=== PATIENT | male | born 1935 | race African-American/Black ===

== ENCOUNTER 2024-01-29 12:24 | Inpatient (IN) | payer MEDICARE, OTHER ==
[~2024-01-29] VITALS: Ht 172.7 cm; Wt 81.6 kg
[2024-01-29 13:00] LABS: BASOPHILS % (AUTO) 0.6 % (0.0-2.0); EOSINOPHILS # (AUTO) 0.6 K/uL (0.0-0.7); EOSINOPHILS % (AUTO) 7.3 % (0.0-6.0); HEMATOCRIT 32 % (39-51); HEMOGLOBIN 10.5 g/dL (13.5-17.5); LYMPHOCYTES % (AUTO) 13.6 % (20.0-44.0); MEAN CORPUSCULAR HEMOGLOBIN 27 PG (26.0-33.0); MEAN CORPUSCULAR HGB CONC 33 g/dl (31.0-36.0); MEAN CORPUSCULAR VOLUME 84 fL (80-96); MONOCYTES # (AUTO) 0.5 K/uL (0.1-1.30); MONOCYTES % (AUTO) 6.7 % (2.0-12.0); NEUTROPHILS # (AUTO) 5.5 K/uL (1.8-8.9); NEUTROPHILS % (AUTO) 71.8 % (43.0-81.0); PLATELET COUNT (AUTO) 211 K/uL (150-450); RED BLOOD CELL COUNT(AUTO) 3.86 MIL/uL (4.5-6.0); WHITE BLOOD COUNT (AUTO) 7.7 K/uL (4.3-11.0)
[2024-01-29 13:28] LABS: APPEARANCE,URINE CLEAR (CLEAR); BILIRUBIN,URINE NEGATIVE (NEGATIVE); BLOOD, URINE NEGATIVE Ery/uL (NEGATIVE); COLOR,URINE YELLOW (YELLOW); KETONES,URINE NEGATIVE (NEGATIVE); LEUKOCYTE ESTERASE ,URINE NEGATIVE (NEGATIVE); NITRITE, URINE NEGATIVE (NEGATIVE); PROTEIN,URINE 2+ mg/dl (NEGATIVE); UGLUCOSE NEGATIVE (NEGATIVE); UROBILINOGEN,URINE 0.2 EU/dL (0.2)
[2024-01-29 13:31] LABS: ADD URINE CULTURE NO; BACTERIA,URINE Few /HPF (None Seen); HYALINE CASTS, URINE Few /LPF (None Seen); RBC,URINE 0-2 /HPF (0-2); SQUAMOUS EPITHELIAL CELL,UR 0-2 /HPF (None Seen)
[2024-01-29 13:32] LABS: INR 1.06 (0.91-1.10); PARTIAL THROMBOPLASTIN TIME 26.5 SEC (24.3-34.3); PROTHROMBIN TIME 11.2 SECS (9.2-11.1)
[2024-01-29 13:34] LABS: LACTIC ACID 1.4 mmol/L (0.4-2.0)
[2024-01-29 13:38] LABS: CALCIUM, SERUM 8.5 mg/dL (8.5-10.1); CARBON DIOXIDE 30 mmol/L (21-32); CHLORIDE 107 mmol/L (98-107); CREATININE 2.4 mg/dL (0.6-1.3); GLUCOSE 110 mg/dL (74-106); POTASSIUM 3.7 mmol/L (3.5-5.1); SODIUM SERUM 141 mmol/L (136-145); UREA NITROGEN, BLOOD 37 mg/dL (7-18)
[2024-01-29 13:43] LABS: ALANINE AMINOTRANSFERASE 26 U/L (12-78); ALBUMIN 2.8 g/dL (3.4-5.0); ALKALINE PHOSPHATASE 49 U/L (46-116); ASPARTATE AMINOTRANSFERASE 22 U/L (15-37); BILIRUBIN,DIRECT 0.1 mg/dL (0.0-0.2); BILIRUBIN,TOTAL 0.2 mg/dL (0.2-1.0); TOTAL PROTEIN, SERUM 5.7 g/dL (6.4-8.2)
[2024-01-29 15:30] VITALS: BP 143/69; TEMP 98.2
[2024-01-29 16:00] VITALS: BP 143/69; TEMP 98.2; O2SAT 96
[2024-01-29] MEDS ORDERED: ONDANSETRON HCL/PF 4 MG/2 ML VIAL IVP PRN (16:30)
[2024-01-29] MEDS ORDERED: ACETAMINOPHEN 325 MG TABLET PO PRN (16:30)
[2024-01-29] MEDS: ENOXAPARIN SODIUM 30 MG/0.3 ML DISP.SYRIN SQ SCH (17:06)
[2024-01-29] MEDS: IV 1/2NS 1000 ML 1,000 ML IV PRN (17:16)
[2024-01-29 20:00] VITALS: BP 151/84; TEMP 98.6; O2SAT 97
[2024-01-29 20:58] VITALS: BP_SYST 109; BP_SYST 136; BP_SYST 137; BP_DIAS 100; BP_DIAS 66; BP_DIAS 75; TEMP 98.6; O2SAT 95
[2024-01-30] VITALS (7 sets, daily range): BP systolic 130–157; BP diastolic 63–87; TEMP 97.7–98.4; O2SAT 97–99
[2024-01-30 06:54] LABS: BASOPHILS % (AUTO) 0.6 % (0.0-2.0); EOSINOPHILS # (AUTO) 0.6 K/uL (0.0-0.7); EOSINOPHILS % (AUTO) 8.7 % (0.0-6.0); HEMATOCRIT 32 % (39-51); HEMOGLOBIN 10.6 g/dL (13.5-17.5); LYMPHOCYTES # (AUTO) 1.8 K/uL (0.8-4.8); LYMPHOCYTES % (AUTO) 24.6 % (20.0-44.0); MEAN CORPUSCULAR HEMOGLOBIN 27 PG (26.0-33.0); MEAN CORPUSCULAR HGB CONC 33 g/dl (31.0-36.0); MEAN CORPUSCULAR VOLUME 81 fL (80-96); MONOCYTES # (AUTO) 0.5 K/uL (0.1-1.30); MONOCYTES % (AUTO) 7.2 % (2.0-12.0); NEUTROPHILS # (AUTO) 4.3 K/uL (1.8-8.9); NEUTROPHILS % (AUTO) 58.9 % (43.0-81.0); PLATELET COUNT (AUTO) 225 K/uL (150-450); RED BLOOD CELL COUNT(AUTO) 3.92 MIL/uL (4.5-6.0); RED CELL DISTRIBUTION WIDTH 16.1 % (11.5-15.0); WHITE BLOOD COUNT (AUTO) 7.3 K/uL (4.3-11.0)
[2024-01-30 07:04] LABS: CALCIUM, SERUM 8.3 mg/dL (8.5-10.1); CREATININE 1.9 mg/dL (0.6-1.3); MAGNESIUM 1.6 mg/dL (1.8-2.4); PHOSPHORUS 3.7 mg/dL (2.5-4.9); POTASSIUM 3.9 mmol/L (3.5-5.1)
[2024-01-30] MEDS ORDERED: ACET325T53 PO (09:57)
[2024-01-30] MEDS ORDERED: [UNRECOGNIZED DRUG - CODE] PO (09:57)
[2024-01-30] MEDS ORDERED: OMEP40CA21 PO (09:57)
[2024-01-30] MEDS ORDERED: GUAI-966 PO (09:57)
[2024-01-30] MEDS ORDERED: METO50TA16 PO (09:57)
[2024-01-30] MEDS ORDERED: FURO40TA5 PO (09:57)
[2024-01-30] MEDS ORDERED: MAGN400O6 PO (09:57)
[2024-01-30] MEDS ORDERED: ROSU10TA29 PO (09:57)
[2024-01-30] MEDS ORDERED: DOCU100C36 PO (09:57)
[2024-01-30] MEDS ORDERED: NA P133E RC (09:57)
[2024-01-30] MEDS ORDERED: SITA25TA PO (09:57)
[2024-01-30] MEDS ORDERED: AMLO-212 PO (09:57)
[2024-01-30] MEDS ORDERED: MAGN400T52 PO (09:57)
[2024-01-30] MEDS ORDERED: FLUO60SO3 TP (09:57)
[2024-01-30] MEDS ORDERED: MEMA5TAB42 PO (09:57)
[2024-01-30] MEDS ORDERED: CHOL200059 PO (09:57)
[2024-01-30] MEDS ORDERED: DOXA4TAB3 PO (09:57)
[2024-01-30] MEDS ORDERED: FOLI0.8T23 PO (09:57)
[2024-01-30] MEDS ORDERED: ASPI-1420 PO (09:57)
[2024-01-30] MEDS ORDERED: TIZA-180 PO (09:57)
[2024-01-30] MEDS: MAGNESIUM OXIDE 400 MG TABLET PO ONE (11:16)
[2024-01-31] VITALS: BP 156/71; TEMP 99.1; O2SAT 93
[2024-01-31 04:00] VITALS: BP 143/73; TEMP 98.1; O2SAT 98
[2024-01-31 05:00] VITALS: BP_SYST 136; BP_SYST 143; BP_DIAS 72; BP_DIAS 81; TEMP 98.1; O2SAT 97
[2024-01-31 06:44] LABS: BASOPHILS % (AUTO) 0.6 % (0.0-2.0); EOSINOPHILS # (AUTO) 0.6 K/uL (0.0-0.7); EOSINOPHILS % (AUTO) 8.3 % (0.0-6.0); HEMATOCRIT 33 % (39-51); HEMOGLOBIN 10.8 g/dL (13.5-17.5); LYMPHOCYTES # (AUTO) 1.9 K/uL (0.8-4.8); LYMPHOCYTES % (AUTO) 25.1 % (20.0-44.0); MEAN CORPUSCULAR HEMOGLOBIN 27 PG (26.0-33.0); MEAN CORPUSCULAR HGB CONC 33 g/dl (31.0-36.0); MEAN CORPUSCULAR VOLUME 82 fL (80-96); MONOCYTES # (AUTO) 0.6 K/uL (0.1-1.30); MONOCYTES % (AUTO) 8.2 % (2.0-12.0); NEUTROPHILS # (AUTO) 4.5 K/uL (1.8-8.9); NEUTROPHILS % (AUTO) 57.8 % (43.0-81.0); PLATELET COUNT (AUTO) 226 K/uL (150-450); RED BLOOD CELL COUNT(AUTO) 3.99 MIL/uL (4.5-6.0); RED CELL DISTRIBUTION WIDTH 16.1 % (11.5-15.0); WHITE BLOOD COUNT (AUTO) 7.7 K/uL (4.3-11.0)
[2024-01-31 07:00] VITALS: BP 141/67; TEMP 98.1; O2SAT 96
[2024-01-31 07:18] LABS: ALBUMIN 2.5 g/dL (3.4-5.0); BILIRUBIN,TOTAL 0.3 mg/dL (0.2-1.0); CALCIUM, SERUM 8.3 mg/dL (8.5-10.1); CREATININE 1.8 mg/dL (0.6-1.3); MAGNESIUM 1.8 mg/dL (1.8-2.4); PHOSPHORUS 3.1 mg/dL (2.5-4.9); TOTAL PROTEIN, SERUM 5.6 g/dL (6.4-8.2)
[2024-02-01 08:11] LABS: PTH, INTACT 39 pg/mL (15-65)
== END 2024-01-31 18:04 | DRG 640 ==
LOC: ER 12:26 → TELE 14:02 → MED 01-31 10:40 → TELE 01-31 11:02 → MED 01-31 14:08
PROVIDERS: ADMIT Nurse Practitioner Acute Care; ATTEND Student in an Organized Health Care Education/Training Program
DX: E86.0 Dehydration (principal); N17.0 Acute kidney failure with tubular necrosis; E44.0 Moderate protein-calorie malnutrition; D68.69 Other thrombophilia; R00.1 Bradycardia, unspecified; R55 Syncope and collapse; E11.22 Type 2 diabetes mellitus with diabetic chronic kidney disease; E66.9 Obesity, unspecified; D64.9 Anemia, unspecified; E88.09 Other disorders of plasma-protein metabolism, not elsewhere classified; R53.1 Weakness; R42 Dizziness and giddiness; F03.90 Unspecified dementia, unspecified severity, without behavioral disturbance, psychotic disturbance, mood disturbance, and anxiety; I12.9 Hypertensive chronic kidney disease with stage 1 through stage 4 chronic kidney disease, or unspecified chronic kidney disease; N18.9 Chronic kidney disease, unspecified
CPT/HCPCS: 36415; 70450-TC; 71045-TC; 76770-TC; 80048-TC; 80053-TC; 80061-TC; 80076-TC; 81001; 82550-TC; 82962-TC; 83605-TC; 83735-TC; 83970; 84100-TC; 84155; 84165; 84443-TC; 84484-TC; 85025-TC; 85730-TC; 93307-TC; 97110-TC; 97116-TC; 97530-TC; A4223; G0378; J1650; J3490

== ENCOUNTER 2024-03-27 22:47 | Inpatient (IN) | payer MEDICARE, OTHER ==
[~2024-03-27] VITALS: Ht 188 cm; Wt 89.8 kg
[~2024-03-27 22:47] MED LIST: ACET325T53 PO; AMLO-212 PO; ASPI-1420 PO; CHOL200059 PO; DOCU100C36 PO; DOXA4TAB3 PO; FLUO60SO3 TP; FOLI0.8T23 PO; GUAI-966 PO; MAGN400O6 PO; MAGN400T52 PO; MEMA5TAB42 PO; NA P133E RC; OMEP40CA21 PO; ROSU10TA29 PO; SITA25TA PO; TIZA-180 PO; [UNRECOGNIZED DRUG - CODE] PO
[2024-03-27 23:29] LABS: BASOPHILS # (AUTO) 0.1 K/uL (0.0-0.2); BASOPHILS % (AUTO) 0.4 % (0.0-2.0); EOSINOPHILS # (AUTO) 0.2 K/uL (0.0-0.7); EOSINOPHILS % (AUTO) 1.4 % (0.0-6.0); HEMATOCRIT 30 % (39-51); HEMOGLOBIN 9.7 g/dL (13.5-17.5); LYMPHOCYTES # (AUTO) 1.1 K/uL (0.8-4.8); LYMPHOCYTES % (AUTO) 8.2 % (20.0-44.0); MEAN CORPUSCULAR HEMOGLOBIN 25 PG (26.0-33.0); MEAN CORPUSCULAR HGB CONC 33 g/dl (31.0-36.0); MEAN CORPUSCULAR VOLUME 77 fL (80-96); MONOCYTES # (AUTO) 0.7 K/uL (0.1-1.30); MONOCYTES % (AUTO) 5.2 % (2.0-12.0); NEUTROPHILS # (AUTO) 11.5 K/uL (1.8-8.9); NEUTROPHILS % (AUTO) 84.8 % (43.0-81.0); PLATELET COUNT (AUTO) 406 K/uL (150-450); RED BLOOD CELL COUNT(AUTO) 3.87 MIL/uL (4.5-6.0); WHITE BLOOD COUNT (AUTO) 13.6 K/uL (4.3-11.0)
[2024-03-27 23:40] LABS: CALCIUM, SERUM 8.4 mg/dL (8.5-10.1); CARBON DIOXIDE 26 mmol/L (21-32); CHLORIDE 106 mmol/L (98-107); CREATININE 2.2 mg/dL (0.6-1.3); GLUCOSE 109 mg/dL (74-106); SODIUM SERUM 140 mmol/L (136-145); UREA NITROGEN, BLOOD 46 mg/dL (7-18)
[2024-03-27 23:51] LABS: ALANINE AMINOTRANSFERASE 96 U/L (12-78); ALBUMIN 2.1 g/dL (3.4-5.0); ALKALINE PHOSPHATASE 82 U/L (46-116); ASPARTATE AMINOTRANSFERASE 66 U/L (15-37); BILIRUBIN,DIRECT 0.1 mg/dL (0.0-0.2); BILIRUBIN,TOTAL 0.2 mg/dL (0.2-1.0); NT-PRO BNP 1287 pg/mL (0-125)
[2024-03-27 23:57] LABS: INR 1.16 (0.91-1.10); PARTIAL THROMBOPLASTIN TIME 32.8 SEC (24.3-34.3); PROTHROMBIN TIME 12.2 SECS (9.2-11.1)
[2024-03-27] MEDS ORDERED: VANCOMYCIN 1 GM /D5W 250 ML PB IV ONE (23:59)
[2024-03-28] MEDS ORDERED: ACETAMINOPHEN 325 MG TABLET PO PRN
[2024-03-28] MEDS ORDERED: ONDANSETRON HCL/PF 4 MG/2 ML VIAL IVP PRN
[2024-03-28] MEDS ORDERED: MORPHINE SULFATE INJ 2 MG/ML DISP.SYRIN IV PRN
[2024-03-28] MEDS ORDERED: hydrALAZINE HCL IV 20 MG VIAL IV PRN
[2024-03-28] MEDS ORDERED: IV NS 0.9% 1,000 ML IV SCH
[2024-03-28] MEDS: VANCOMYCIN 1 GM in IV D5W 250 ML IV ONE (00:13)
[2024-03-28 00:37] LABS: IRON, SERUM 12 ug/dl (50-175); TOTAL IRON BINDING CAPACITY 177 ug/dl (250-450)
[2024-03-28 00:52] LABS: FERRITIN 131 ng/mL (8-388)
[2024-03-28] MEDS ORDERED: DEXTROSE 50%-WATER 50 ML DISP.SYRIN IV PRN (01:00)
[2024-03-28] MEDS: ASPIRIN 325 MG TABLET PO ONE (01:10)
[2024-03-28] MEDS ORDERED: TIZANIDINE HCL 4 MG TABLET PO PRN (02:30)
[2024-03-28] MEDS ORDERED: CLINDAMYCIN 900 MG/6 ML VIAL ONE (03:55)
[2024-03-28 04:00] VITALS: BP 143/89; TEMP 98.1; O2SAT 95
[2024-03-28] MEDS: CLINDAMYCIN 900 MG in IV D5W 50 ML IV SCH (04:03)
[2024-03-28 07:07] LABS: BASOPHILS % (AUTO) 0.4 % (0.0-2.0); EOSINOPHILS # (AUTO) 0.3 K/uL (0.0-0.7); EOSINOPHILS % (AUTO) 3.4 % (0.0-6.0); HEMATOCRIT 27 % (39-51); HEMOGLOBIN 8.9 g/dL (13.5-17.5); LYMPHOCYTES # (AUTO) 1.3 K/uL (0.8-4.8); LYMPHOCYTES % (AUTO) 14.8 % (20.0-44.0); MEAN CORPUSCULAR HEMOGLOBIN 26 PG (26.0-33.0); MEAN CORPUSCULAR HGB CONC 34 g/dl (31.0-36.0); MEAN CORPUSCULAR VOLUME 77 fL (80-96); MONOCYTES # (AUTO) 0.6 K/uL (0.1-1.30); NEUTROPHILS # (AUTO) 6.7 K/uL (1.8-8.9); NEUTROPHILS % (AUTO) 74.4 % (43.0-81.0); PLATELET COUNT (AUTO) 347 K/uL (150-450); RED BLOOD CELL COUNT(AUTO) 3.45 MIL/uL (4.5-6.0); RED CELL DISTRIBUTION WIDTH 15.7 % (11.5-15.0)
[2024-03-28 07:12] LABS: ALBUMIN 1.7 g/dL (3.4-5.0); BILIRUBIN,TOTAL 0.3 mg/dL (0.2-1.0); MAGNESIUM 1.5 mg/dL (1.8-2.4); PHOSPHORUS 3.5 mg/dL (2.5-4.9); POTASSIUM 3.4 mmol/L (3.5-5.1); TOTAL PROTEIN, SERUM 5.9 g/dL (6.4-8.2)
[2024-03-28 08:00] VITALS: BP 149/80; O2SAT 100
[2024-03-28] MEDS: BLOOD SUGAR DIAGNOSTIC 1 EACH STRIP IN SCH (08:37)
[2024-03-28] MEDS: PANTOPRAZOLE 40 MG TABLET.DR PO SCH (08:37)
[2024-03-28] MEDS ORDERED: FLUOCINONIDE 0.05% SOLN 60 ML BOTTLE TP SCH ×2 (09:00)
[2024-03-28] MEDS ORDERED: CLINDAMYCIN PHOSPHATE IV 600 MG/4 ML VIAL IV SCH (09:00)
[2024-03-28] MEDS: ASPIRIN EC 81 MG TABLET.DR PO SCH (09:04)
[2024-03-28] MEDS: AMLODIPINE BESYLATE 5 MG TABLET PO SCH (09:04)
[2024-03-28] MEDS: DOXAZOSIN MESYLATE (4 MG) 4 MG TABLET PO SCH (09:05)
[2024-03-28] MEDS: LINAGLIPTIN 5 MG TABLET PO SCH (09:05)
[2024-03-28] MEDS: MEMANTINE HCL 5 MG TABLET PO SCH (09:05)
[2024-03-28] MEDS: HEPARIN SODIUM, PORCINE 5000 UNITS/1 ML VIAL SQ SCH (09:27)
[2024-03-28 12:00] VITALS: BP 128/64; O2SAT 99
[2024-03-28] MEDS: POTASSIUM CHLORIDE 10 MEQ TABLET.SA PO ONE (12:39)
[2024-03-28] MEDS: SOD FERRIC GLUC 125 MG in IV NS 0.9% 100 ML IV SCH (14:14)
[2024-03-28] MEDS: MAGNESIUM OXIDE 400 MG TABLET PO ONE (14:14)
[2024-03-28 17:43] LABS: APPEARANCE,URINE CLEAR (CLEAR); BILIRUBIN,URINE NEGATIVE (NEGATIVE); BLOOD, URINE TRACE-INTA Ery/uL (NEGATIVE); COLOR,URINE YELLOW (YELLOW); KETONES,URINE NEGATIVE (NEGATIVE); LEUKOCYTE ESTERASE ,URINE NEGATIVE (NEGATIVE); NITRITE, URINE NEGATIVE (NEGATIVE); PH,URINE 5.5 (5.0-8.0); PROTEIN,URINE 3+ mg/dl (NEGATIVE); UGLUCOSE NEGATIVE (NEGATIVE); UROBILINOGEN,URINE 0.2 EU/dL (0.2)
[2024-03-28 17:52] LABS: CREATININE, URINE 124.6 MG/DL (30.0-125.0); URINE TOTAL PROTEIN 297.8 mg/dL (0-11.9)
[2024-03-28 18:00] VITALS: BP 154/90; TEMP 98.2; O2SAT 99
[2024-03-28 18:35] LABS: ADD URINE CULTURE YES; BACTERIA,URINE Few /HPF (None Seen); SQUAMOUS EPITHELIAL CELL,UR Few /HPF (None Seen)
[2024-03-28] MEDS: UREA 10% -AHA 4% CREAM 57 GM TUBE TP ONE (18:49)
[2024-03-28 19:08] LABS: EOSINOPHIL,URINE None Seen
[2024-03-28 20:00] VITALS: BP 121/60; TEMP 98.1; O2SAT 99
[2024-03-28] MEDS: ATORVASTATIN 40 MG TABLET PO SCH (21:05)
[2024-03-28] MEDS: INSULIN REGULAR, HUMAN 100 UNIT/ML 3 ML VIAL SQ PRN (21:15)
[2024-03-28] MEDS ORDERED: IVERMECTIN 3 MG TABLET PO ONE (22:30)
[2024-03-29] VITALS: BP 143/61; TEMP 97.7; O2SAT 96
[2024-03-29] MEDS ORDERED: PERMETHRIN 5% CRM 60 GM TUBE TP ONE (00:09)
[2024-03-29] MEDS: PERMETHRIN 5% CRM 60 GM TUBE TP ONE (02:30)
[2024-03-29 04:00] VITALS: BP 153/72; TEMP 98.4; O2SAT 100
[2024-03-29 07:20] LABS: BASOPHILS % (AUTO) 0.3 % (0.0-2.0); EOSINOPHILS # (AUTO) 0.3 K/uL (0.0-0.7); EOSINOPHILS % (AUTO) 4.6 % (0.0-6.0); HEMATOCRIT 28 % (39-51); HEMOGLOBIN 9.1 g/dL (13.5-17.5); LYMPHOCYTES # (AUTO) 1.3 K/uL (0.8-4.8); LYMPHOCYTES % (AUTO) 18.8 % (20.0-44.0); MEAN CORPUSCULAR HEMOGLOBIN 26 PG (26.0-33.0); MEAN CORPUSCULAR HGB CONC 33 g/dl (31.0-36.0); MEAN CORPUSCULAR VOLUME 79 fL (80-96); MONOCYTES # (AUTO) 0.4 K/uL (0.1-1.30); MONOCYTES % (AUTO) 6.5 % (2.0-12.0); NEUTROPHILS # (AUTO) 4.8 K/uL (1.8-8.9); NEUTROPHILS % (AUTO) 69.8 % (43.0-81.0); PLATELET COUNT (AUTO) 375 K/uL (150-450); RED BLOOD CELL COUNT(AUTO) 3.54 MIL/uL (4.5-6.0); RED CELL DISTRIBUTION WIDTH 16.1 % (11.5-15.0); WHITE BLOOD COUNT (AUTO) 6.8 K/uL (4.3-11.0)
[2024-03-29 07:30] LABS: ALBUMIN 1.9 g/dL (3.4-5.0); BILIRUBIN,TOTAL 0.3 mg/dL (0.2-1.0); CALCIUM, SERUM 8.2 mg/dL (8.5-10.1); CREATININE 2.1 mg/dL (0.6-1.3); MAGNESIUM 1.7 mg/dL (1.8-2.4); POTASSIUM 3.8 mmol/L (3.5-5.1); TOTAL PROTEIN, SERUM 6.3 g/dL (6.4-8.2)
[2024-03-29 08:00] VITALS: BP 144/72; TEMP 99; O2SAT 97
[2024-03-29] MEDS: CEFTRIAXONE 1 G in IV D5W 50 ML IV SCH (08:25)
[2024-03-29] MEDS: DOXYCYCLINE HYCLATE (100 MG) 100 MG TABLET PO SCH (08:27)
[2024-03-29] MEDS: IVERMECTIN 3 MG TABLET PO ONE (09:16)
[2024-03-29] MEDS: MAGNESIUM OXIDE 400 MG TABLET PO ONE (13:03)
[2024-03-29 16:00] VITALS: BP 125/65; TEMP 98.4; O2SAT 99
[2024-03-29 20:00] VITALS: BP 147/68; TEMP 97.5; O2SAT 96
[2024-03-30 04:00] VITALS: BP 151/62; TEMP 97.5; O2SAT 94
[2024-03-30 05:08] LABS: PTH, INTACT 50 pg/mL (15-65)
[2024-03-30 08:00] VITALS: BP 157/66; TEMP 98.2; O2SAT 97
[2024-03-30 08:39] LABS: CALCIUM, SERUM 7.9 mg/dL (8.5-10.1); CREATININE 2.1 mg/dL (0.6-1.3); MAGNESIUM 1.7 mg/dL (1.8-2.4); POTASSIUM 3.8 mmol/L (3.5-5.1)
[2024-03-30] MEDS: MAGNESIUM OXIDE 400 MG TABLET PO ONE (12:50)
[2024-03-30 16:00] VITALS: BP 138/96; TEMP 98.6; O2SAT 99
[2024-03-30 20:34] VITALS: BP 151/78; TEMP 98.4; O2SAT 99
[2024-03-31 04:52] VITALS: BP 156/72; TEMP 97.9; O2SAT 100
[2024-03-31 07:53] LABS: BASOPHILS # (AUTO) 0.1 K/uL (0.0-0.2); BASOPHILS % (AUTO) 0.8 % (0.0-2.0); EOSINOPHILS # (AUTO) 0.4 K/uL (0.0-0.7); EOSINOPHILS % (AUTO) 5.5 % (0.0-6.0); HEMATOCRIT 26 % (39-51); HEMOGLOBIN 8.7 g/dL (13.5-17.5); LYMPHOCYTES # (AUTO) 1.4 K/uL (0.8-4.8); LYMPHOCYTES % (AUTO) 20.9 % (20.0-44.0); MEAN CORPUSCULAR HEMOGLOBIN 25 PG (26.0-33.0); MEAN CORPUSCULAR HGB CONC 33 g/dl (31.0-36.0); MEAN CORPUSCULAR VOLUME 76 fL (80-96); MONOCYTES # (AUTO) 0.5 K/uL (0.1-1.30); MONOCYTES % (AUTO) 7.3 % (2.0-12.0); NEUTROPHILS # (AUTO) 4.3 K/uL (1.8-8.9); NEUTROPHILS % (AUTO) 65.5 % (43.0-81.0); PLATELET COUNT (AUTO) 388 K/uL (150-450); RED BLOOD CELL COUNT(AUTO) 3.44 MIL/uL (4.5-6.0); RED CELL DISTRIBUTION WIDTH 15.9 % (11.5-15.0); WHITE BLOOD COUNT (AUTO) 6.6 K/uL (4.3-11.0)
[2024-03-31 08:00] VITALS: BP 143/61; TEMP 98.4; O2SAT 99
[2024-03-31 08:11] VITALS: BP 143/61
[2024-03-31 09:26] LABS: CALCIUM, SERUM 8.6 mg/dL (8.5-10.1); CREATININE 1.9 mg/dL (0.6-1.3); MAGNESIUM 1.8 mg/dL (1.8-2.4); PHOSPHORUS 3.5 mg/dL (2.5-4.9); POTASSIUM 4.2 mmol/L (3.5-5.1)
[2024-03-31] MEDS ORDERED: DOXY100T2 PO (12:09)
[2024-04-01 09:09] LABS: *SPE A/G RATIO 0.5 (0.7-1.7); *SPE ALPHA-1-GLOBULIN 0.4 g/dL (0.0-0.4); *SPE ALPHA-2-GLOBULIN 0.7 g/dL (0.4-1.0); *SPE GLOBULIN, TOTAL 3.8 g/dL (2.2-3.9); *SPE M-SPIKE Not Observed g/dL (Not Observed); *SPE PROTEIN TOTAL 5.8 g/dL (6.0-8.5); *SPEGAMMA GLOBULIN 1.7 g/dL (0.4-1.8)
== END 2024-03-31 15:50 | DRG 871 ==
LOC: ER 23:00 → TELE1 03-28 01:59 → MEDSG1 03-29 10:23
PROVIDERS: ADMIT Internal Medicine; ATTEND Nurse Practitioner Acute Care
DX: A41.9 Sepsis, unspecified organism (principal); I21.A1 Myocardial infarction type 2; J18.9 Pneumonia, unspecified organism; L03.116 Cellulitis of left lower limb; E44.0 Moderate protein-calorie malnutrition; N18.4 Chronic kidney disease, stage 4 (severe); I13.0 Hypertensive heart and chronic kidney disease with heart failure and stage 1 through stage 4 chronic kidney disease, or unspecified chronic kidney disease; I50.32 Chronic diastolic (congestive) heart failure; G93.40 Encephalopathy, unspecified; N17.9 Acute kidney failure, unspecified; K21.9 Gastro-esophageal reflux disease without esophagitis; E11.22 Type 2 diabetes mellitus with diabetic chronic kidney disease; D50.9 Iron deficiency anemia, unspecified; E66.9 Obesity, unspecified; E78.5 Hyperlipidemia, unspecified; E83.42 Hypomagnesemia; E87.6 Hypokalemia; Z79.4 Long term (current) use of insulin; Z79.84 Long term (current) use of oral hypoglycemic drugs; R74.01 Elevation of levels of liver transaminase levels; E88.09 Other disorders of plasma-protein metabolism, not elsewhere classified; E83.9 Disorder of mineral metabolism, unspecified; F03.90 Unspecified dementia, unspecified severity, without behavioral disturbance, psychotic disturbance, mood disturbance, and anxiety; L89.621 Pressure ulcer of left heel, stage 1; L89.611 Pressure ulcer of right heel, stage 1; N40.0 Benign prostatic hyperplasia without lower urinary tract symptoms; B86 Scabies; L85.9 Epidermal thickening, unspecified; S80.822A Blister (nonthermal), left lower leg, initial encounter; S80.821A Blister (nonthermal), right lower leg, initial encounter; X58.XXXA Exposure to other specified factors, initial encounter; Y93.9 Activity, unspecified; Y92.129 Unspecified place in nursing home as the place of occurrence of the external cause
CPT/HCPCS: 36415; 71045-TC; 73590-TC; 80048-TC; 80053-TC; 80076-TC; 81001; 82550-TC; 82570-TC; 82728-TC; 82962-TC; 83540-TC; 83605-TC; 83735-TC; 83880; 83970; 84100-TC; 84155; 84165; 84300-TC; 84484-TC; 85025-TC; 85730-TC; 87040-TC; 87081-TC; 87086-TC; 93970-TC; A4223; A6253; G0378; J0696; J1644; J1815; J2916; J3370; J3490; J7030; J7050; J7060